=== PATIENT | male | born 1970 | race Caucasian/White ===

== ENCOUNTER → 2019-02-25 | Outpatient (CLI) | payer MEDICARE, MEDICAID | LOC: FB.MH 08:00 | PROVIDERS: ATTEND Psychologist Clinical | DX: F32.0 Major depressive disorder, single episode, mild (principal); Z60.9 Problem related to social environment, unspecified | CPT/HCPCS: 90834 ==

== ENCOUNTER → 2019-03-04 | Outpatient (CLI) | payer MEDICARE, MEDICAID | LOC: FB.MH 08:00 | PROVIDERS: ATTEND Psychologist Clinical | DX: F32.0 Major depressive disorder, single episode, mild (principal); F41.9 Anxiety disorder, unspecified; Z60.9 Problem related to social environment, unspecified | CPT/HCPCS: 90834 ==